=== PATIENT | female | born 1985 | race Caucasian/White ===

== ENCOUNTER 2021-03-31 15:36 | Emergency (ER) | payer SELFPAY ==
[2021-03-31] MEDS ORDERED: Ketorolac Tromethamine 30 MG/ML VIAL ONE (17:29)
== END 2021-03-31 20:31 | disposition home or self-care (01) ==
LOC: ERS 15:36
DX: S42.022A Displaced fracture of shaft of left clavicle, initial encounter for closed fracture (principal); S50.12XA Contusion of left forearm, initial encounter; V43.52XA Car driver injured in collision with other type car in traffic accident, initial encounter; Y92.410 Unspecified street and highway as the place of occurrence of the external cause
CPT/HCPCS: 70450; 96374; J1885